=== PATIENT | male | born 1955 | race Caucasian/White ===

== ENCOUNTER 2020-05-24 15:51 | Emergency (ER) | payer OTHER ==
[~2020-05-24] VITALS: Ht 167.6 cm; Wt 113.4 kg
[2020-05-24 16:17] LABS: HEMATOCRIT 43.4 % (42.0-52.0); HEMOGLOBIN 14.8 gm/dL (14.0-18.0); MCH 33.8 pg (26.0-34.0); MCHC 34.2 g/dL (28.0-37.0); PLATELET COUNT 227 thou/uL (150-400); RBC 4.39 mil/uL (4.50-6.00); RDW 15.1 % (10.5-14.5); WBC 9.6 thou/uL (4.0-11.0)
[2020-05-24 16:45] LABS: ANION GAP 16 mmol/L (7-16); BUN 15 mg/dL (7-18); CALCIUM 8.7 mg/dL (8.5-10.1); CHLORIDE 100 mmol/L (98-107); CO2 20 mmol/L (21-32); CREATININE 0.9 mg/dL (0.7-1.3); GLUCOSE 247 mg/dL (74-106); SODIUM 136 mmol/L (136-145)
[2020-05-24 16:55] LABS: ALBUMIN 3.6 g/dL (3.4-5.0); SGOT 37 U/L (15-37); SGPT 48 U/L (30-65); TOTAL BILIRUBIN 0.8 mg/dL (0.2-1.0); TOTAL PROTEIN 6.9 g/dL (6.4-8.2); TROPONIN-I <0.06 ng/mL (<0.06)
[2020-05-24 17:02] LABS: ABSOLUTE NEUTROPHILS 6.5 thou/uL (1.4-8.2); ATYPICAL LYMPHS 1 %
[2020-05-24 17:03] LABS: ANISOCYTOSIS 2+; POLYCHROMASIA SLIGHT
[2020-05-24 17:10] VITALS: BP 117/60
--- NOTE | 2020-05-25 07:17 | EKG ---
[address] [employer] [address] ELECTROCARDIOGRAM REPORT Name: LIDIA ANDREWS Room #: [facility]#: [id number] Admission: 05/24/20 Attend Phys: Discharge: 05/24/20 Date of : 53 Report #: [id number] [facility] ED Test Date: 2020-05-24 Test Time: 16:52:00 Pat Name: LIDIA ANDREWS Department: Room: Gender: [employer] Worker: joshua : 1955 Requested By: Hebert Barron Order Number: [id number] MD: Clinton Guzman Measurements Intervals [place] Rate: 87 P: 70 [place]: 168 QRS: 62 QRSD: 93 T: 51 QT: 351 QTc: 423 Interpretive Statements Sinus rhythm Normal tracing No previous ECG available for comparison Electronically Signed On 05-25-2020 7:17:30 METAL FILER by Clinton Guzman [email or web address] <ELECTRONICALLY SIGNED> By: Clinton Guzman MD, [facility] 05/25/20 0717 1652 1652 Clinton Guzman MD, FACC /EPI
== END 2020-05-24 17:10 | disposition home or self-care (01) ==
LOC: ER 15:51
PROVIDERS: Emergency Medicine
DX: R55 Syncope and collapse (principal); M25.512 Pain in left shoulder; I10 Essential (primary) hypertension; E11.9 Type 2 diabetes mellitus without complications; J44.9 Chronic obstructive pulmonary disease, unspecified; K21.9 Gastro-esophageal reflux disease without esophagitis; Z90.49 Acquired absence of other specified parts of digestive tract; Z88.0 Allergy status to penicillin; Z88.8 Allergy status to other drugs, medicaments and biological substances

== ENCOUNTER → 2021-06-14 | Outpatient (CLI) | payer OTHER | LOC: CAT 07:59 | PROVIDERS: ATTEND Internal Medicine | DX: Z12.2 Encounter for screening for malignant neoplasm of respiratory organs (principal); J84.10 Pulmonary fibrosis, unspecified; Z87.891 Personal history of nicotine dependence; I70.0 Atherosclerosis of aorta ==